=== PATIENT | male | born 1970 | race Hispanic/Latino ===

== ENCOUNTER 2024-02-27 10:13 | Emergency (ER) | payer SELFPAY ==
[2024-02-27] VITALS (8 sets, daily range): BP systolic 113–148; BP diastolic 70–98; BMI 41.0
[2024-02-27 10:39] LABS: % Basophils 0.4 % (0-2); % Eosinophils 3.7 % (0-6); % Immature Granulocytes 0.7 % (0-0.5); % Lymphocytes 28.5 % (20.5-51.1); % Monocytes 7.8 % (1.7-9.3); % Neutrophils 58.9 % (42.2-75.2); Absolute Eosinophils 0.3 10^3/uL (0-0.7); Absolute Immature Granulocytes 0.1 10^3/uL (0-0.05); Absolute Lymphocytes 2.6 10^3/uL (1.2-3.4); Absolute Monocytes 0.7 10^3/uL (0.1-0.6); Absolute Neutrophils 5.3 10^3/uL (1.4-6.5); Hemoglobin 15.1 g/dL (13.0-18.0); Mean Corp Hgb Conc. 35.1 g/dL (33.0-37.0); Mean Corpuscular Hgb 30.2 pg (27.0-31.0); Mean Platelet Volume 10.1 fL (7.4-10.4); Nucleated Red Blood Cells % 0 % (-); Platelet Count 158 10^3/uL (130-400); Red Cell Dist. Width 12.5 % (11.5-14.5)
[2024-02-27 10:50] LABS: ALT (SGPT) 128 U/L (0-50); AST (SGOT) 105 U/L (17-59); Albumin 4.4 g/dl (3.5-5.0); Alkaline Phosphatase 88 U/L (38-126); Blood Urea Nitrogen 17 mg/dl (9-20); Calcium 9.4 mg/dl (8.4-10.2); Carbon Dioxide 25 mmol/L (22-30); Chloride 105 mmol/L (98-107); Estimated Creatinine Clearance > 125 ml/min; Glucose 139 mg/dl (70-99); Potassium 3.8 mmol/L (3.5-5.1); Sodium 143 mmol/L (135-145); Total Bilirubin 0.9 mg/dl (0.2-1.3); Total Protein 7.4 g/dl (6.3-8.2); eGFR > 60.00
--- NOTE | 2024-02-27 10:56 | ED.GENMED ---
History of Present Illness
General
Chief Complaint: Dizziness
Time Seen by Provider: 02/27/24 10:35
History of Present Illness
History of Present Illness:
Patient is a 53-year-old [place]-speaking male with no reported chronic medical problems and no daily medications here today with daughter for evaluation of a headache that began suddenly while working at approximately 9 AM this morning. Patient
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 He has since had a constant headache described as moderate to severe, 7 out of 10 in nature, along the back of the left side of his head radiating
just behind his ear. No ear pain. No ringing in the ears. He also reports associated nausea, vomiting x 4, and dizziness described as a room spinning sensation. He has noted slight symmetric blurry vision. Since vomiting and being in the
ambulance he has noted mild chest pressure and shortness of breath but denies significant chest pain. No back pain. No abdominal pain. No diarrhea. No fevers. He has noted being increasingly sweaty. He does not typically get headaches and he
has never had similar symptoms previously. He was brought in today via EMS. He was provided 4 mg of Zofran en route.
Review of Systems
Review of Systems
All Other Systems: ROS reviewed and negative except as documented in HPI and ROS
Phy Exam
Physical Exam
Physical Exam:
GENERAL: Alert , in no apparent distress, diaphoretic appearing
EYE: pupils equal and reactive to light, extraocular movements intact
NECK: Supple, no significant adenopathy.
ENT: o/p clr, mmm.
CARDIAC: Regular rate and rhythm .
LUNGS: Clear breath sounds bilaterally, no acute respiratory distress, no wheezes/rales/rhonchi
ABDOMEN: Soft, without focal tenderness, no r/g, no cvat
NEUROLOGICAL: Alert and oriented, no focal neuro deficits, cranial nerves II through XII intact, moving all extremities, normal sensation and motor
SKIN: Warm and dry, skin intact.
MUSCULOSKELETAL: No edema, well perfused.
PSYCH: Normal and appropriate interaction.
Course
Orders/Labs/Results
Orders:
Orders
02/27/24 10:18
Electrocardiogram (*1) Urgent
Reason for Study: Vertigo / Dizzy
EKG- Treatment ONCE
02/27/24 10:31
CMP [Comprehensive Metabolic Panel] Urgent
Complete Blood Count/With Diff Urgent
Lipase Urgent
NT-proBNP Urgent
Troponin I Urgent
02/27/24 10:49
CT Head & Neck Angio W/wo IV Urgent
Comment:
Reason For Exam: headache, vomiting, dizziness, concern for subarac
02/27/24 10:50
CT Head W/o Iv Contrast Urgent
Comment:
Reason For Exam: headache, dizziness, vomiting
02/27/24 10:51
CR Chest Portable - 1 View Urgent
Comment:
Reason For Exam: dizziness
Reason Study Needs to be Portable: Patient Unstable
02/27/24 10:59
Ondansetron Injectable [Zofran] 4 mg IV NOW STA
02/27/24 12:40
Add On- LAB Urgent
Tests Added?: lipase, BNP
Abnormal Lab Results
02/27/24
10:31
Abs Immat Gran (auto) 0.1 H 10^3/uL
(0-0.05)
Absolute Monos (auto) 0.7 H 10^3/uL
(0.1-0.6)
Immature Gran % 0.7 H %
(0-0.5)
Glucose 139 H mg/dl
(70-99)
AST 105 H U/L
(17-59)
ALT 128 H U/L
(0-50)
02/27/24 10:31
02/27/24 10:31
Vital Signs
Initial and Last Documented VS:
Initial Vital Signs
Pulse Resp BP Pulse Ox
53 18 131/92 96
02/27/24 10:19 02/27/24 10:19 02/27/24 10:19 02/27/24 10:19
Last Documented Vital Signs
Pulse Resp BP Pulse Ox
74 22 137/90 96
02/27/24 16:00 02/27/24 16:00 02/27/24 16:00 02/27/24 10:19
MDM/Problems Addressed
Differential Diagnosis Includes:
Patient is a 53-year-old [place]-speaking male with no reported chronic medical problems and no daily medications here today with daughter for evaluation of a headache. Overall, patient appears uncomfortable. He is diaphoretic and slightly
hypertensive and bradycardic. Neurologically is intact otherwise. We will begin with a workup including screening labs, EKG, chest x-ray, and CTA of the head and neck. Patient previously provided with Zofran en route. Will closely monitor and
reassess. Case discussed with attending, Dr. Alfonso.
02/27/2024 15:48: Patient monitored in the emergency department and has noted improving/resolution of symptoms. He appears very well overall. Screening labs were obtained which reveal no evidence of leukocytosis. Glucose slightly elevated to 139.
AST/ALT elevated to 105 and 128, respectively. No prior LFTs to compare to. Troponin/BNP negative. EKG nonischemic. Chest x-ray reveals mild pulmonary vascular congestion with mild cardiomegaly. CT head/CTA negative. A p.o. challenge was
performed which was successful. Patient able to tolerate p.o. appropriately. Symptoms/findings at this time are of unknown etiology but may be secondary to a viral syndrome versus migraine. The patient is able to tolerate p.o., is without acute
symptoms including vomiting, and appears very well overall. He is neurologically intact. He is able to ambulate. We will discharge patient at this time with recommendations to closely follow-up with his doctor. Discussed repeating lab work as an
outpatient. The patient was provided with return precautions for worsened symptoms. All questions answered. Stable for discharge.
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
*Critical Care Note
Total Time (30-74mins, 75-104mins- exclusive of procedures): Not Applicable
ED Attending Note
-
Portions of this chart may have been created with voice recognition software.� Occasional wrong word or��sound alike� substitutions may have occurred due to the inherent limitations of voice recognition software.
Discharge Plan
Departure
Patient Disposition: Home (Routine Discharge)
Date of Disposition: 02/27/24
Time of Disposition: 15:50
Patient with high blood pressure during this ER visit?: Yes
Condition: Fair
Covid-19: Not Applicable
Discharge Problem:
Headache, Vomiting
Instructions: Headache, Adult ED, Nausea and vomiting in adults, Dizziness
Referrals:
PRIVATE,PHYSICIAN [Family Provider] - Follow up in 5-7 days
Activity Restrictions/Additional Instructions:
You were seen today for evaluation of nausea, vomiting, dizziness, and a headache.
We obtained blood work which reveals an elevated glucose level to 139 and elevated liver function tests with an AST of 105 and ALT of 128. We obtained an x-ray of your chest which reveals mild congestion of the blood vessels in the lungs as well as
mild enlargement of the heart. The CAT scans of your head and neck were within normal limits.
We provided you medication with improvement in symptoms. Rest. Drink plenty of fluids.
Follow-up with your doctor within the next 5 to 7 days for close reevaluation.
Return for any new, worsening, or concerning symptoms.
Lo atendieron hoy para maru evaluaci�n de n�useas, v�mitos, mareos y dolor de clair.
Obtuvimos an�lisis de litzy que revelan un nivel elevado de glucosa a 139 y pruebas de funci�n hep�maxwell elevadas con un AST de 105 y ALT de 128. Obtuvimos maru radiograf�a de cason t�rax que revela maru leve congesti�n de los vasos sangu�neos en los
pulmones, as� florentin agrandamiento leve del coraz�n. Las tomograf�as computarizadas de cason clair y kevin estaban dentro de los l�mites normales.
Le proporcionamos medicaci�n con mejor�a de los s�ntomas. Descansar. Mayela muchos l�quidos.
Mabel un seguimiento con cason m�dico dentro de los pr�ximos 5 a 7 d�as para maru reevaluaci�n minuciosa.
Regrese ante cualquier s�ntoma nuevo, que empeore o que le preocupe.
Interventions
Interventions:
*Risk Screen - Suicide Last Done: 02/27/24 10:19
*General Assessment Last Done: 02/27/24 10:19
*Neglect/Abuse Screening Last Done: 02/27/24 10:19
ED- Fall Risk Assessment Last Done: 02/27/24 10:19
*ED COVID-19 Vaccine History Last Done: 02/27/24 10:19
*Nursing Disposition Last Done: 02/27/24 16:10
ED- Neurological Assessment Last Done: 02/27/24 10:19
ED- Cardiac Assessment Last Done: 02/27/24 10:19
Discharge Date and Time
Discharge Date/Time: 02/27/24 16:11
Print Language: BULGARIAN
[2024-02-27 11:02] LABS: Troponin I < 0.012 ng/ml
[2024-02-27] MEDS: ZOFRAN 4 MG IV (11:10)
[2024-02-27 13:33] LABS: NT-proBNP < 20.0 pg/ml
[2024-02-27 14:55] LABS: Lipase 100 U/L (23-300)
== END 2024-02-27 16:11 | disposition home or self-care (01) ==
LOC: EMR 10:13
PROVIDERS: EMERGENCY PHYSICIAN Emergency Medicine
DX: R42 Dizziness and giddiness (principal); R51.9 Headache, unspecified
CPT/HCPCS: 99284; 96374; 70450; 70496; 70498; 71045; 80053; 83690; 83880; 84484; 85025; 93005; Q9967